=== PATIENT | male | born 1990 | race Caucasian/White ===

== ENCOUNTER 2020-10-10 14:44 | Emergency (ER) | payer OTHER ==
[~2020-10-10] VITALS: Ht 180.3 cm; Wt 61.2 kg
--- NOTE | 2020-10-10 15:24 | NUR ---
PATIENT A/OX4, BREATHING EVEN AND UNLABORED, NO SOB NOTED. DENIES ANY COMPLAINTS AT THIS TIME. Patient discharged to PD in stable condition. Written and verbal after care instructions given. Patient verbalizes understanding of instruction.
[2020-10-10 15:26] VITALS: BP 132/83
== END 2020-10-10 15:26 ==
LOC: ER 14:48
DX: Z02.89 Encounter for other administrative examinations (principal); J45.909 Unspecified asthma, uncomplicated